=== PATIENT | male | born 1945 | race Caucasian/White ===

== ENCOUNTER 2018-04-10 22:11 | Emergency (ER) | payer OTHER ==
[2018-04-10 22:59] LABS: BASOPHIL % 0.1 % (0-2); PLATELET COUNT 232 x10^3mcL (130-400); RED CELL DISTRIBUTION WIDTH 13.4 % (11.5-14.5)
[2018-04-10 23:15] LABS: CALCIUM 8.7 mg/dL (8.5-10.1); CARBON DIOXIDE 24.8 mmol/L (21-32); CHLORIDE SERUM 107 mmol/L (98-107); GLUCOSE SERUM 94 mg/dL (74-106); POTASSIUM SERUM 4.2 mmol/L (3.5-5.1); SODIUM SERUM 142 mmol/L (136-145)
[2018-04-10 23:18] LABS: ALBUMIN 3.8 g/dL (3.4-5.0); ALKALINE PHOSPHATASE 72 U/L (46-116); ALT/SGPT 18 U/L (16-63); AST/SGOT 13 U/L (15-37); BILIRUBIN TOTAL 0.43 mg/dL (0.20-1.00); TOTAL PROTEIN, SERUM 6.8 g/dL (6.4-8.2)
[2018-04-11 03:12] VITALS: BP 123/76
== END 2018-04-11 03:12 ==
LOC: ED 22:11
PROVIDERS: Emergency Medicine
DX: F03.90 Unspecified dementia, unspecified severity, without behavioral disturbance, psychotic disturbance, mood disturbance, and anxiety (principal)
CPT/HCPCS: J2405; Q0092

== ENCOUNTER 2018-04-17 06:10 | Inpatient (IN) | payer OTHER ==
[~2018-04-17] VITALS: Ht 172.7 cm; Wt 64.0 kg
[2018-04-17] MEDS ORDERED: BUSPIRONE HCL10 MG PO (07:53)
[2018-04-17] MEDS ORDERED: DEPAKOTE ER250 M1 PO (07:54)
[2018-04-17] MEDS ORDERED: OLANZAPINE5 M2 PO (07:55)
[2018-04-17] MEDS ORDERED: ARICEPT5 MG PO (07:55)
[2018-04-17] MEDS ORDERED: PAXIL10 MG PO (07:55)
[2018-04-17] MEDS ORDERED: TYLENOL325 M1 PO (07:56)
[2018-04-17] MEDS ORDERED: SEROQUEL25 MG PO (07:56)
[2018-04-17] MEDS ORDERED: LOPERAMIDE HCL2 M1 PO (07:58)
[2018-04-17] MEDS ORDERED: GERI-LANTA355 ML PO (07:59)
[2018-04-17] MEDS ORDERED: GOOD NEIGH1200 MG/15 PO (08:01)
[2018-04-17 08:25] LABS: BASOPHIL % 0.6 % (0-2); PLATELET COUNT 251 x10^3mcL (130-400); RED CELL DISTRIBUTION WIDTH 13.2 % (11.5-14.5)
[2018-04-17 08:30] LABS: CARBON DIOXIDE 28.5 mmol/L (21-32); CHLORIDE SERUM 106 mmol/L (98-107); CREATININE SERUM 0.8 mg/dL (0.7-1.3); GLUCOSE SERUM 100 mg/dL (74-106); POTASSIUM SERUM 3.7 mmol/L (3.5-5.1); SODIUM SERUM 144 mmol/L (136-145)
[2018-04-17 10:40] LABS: FREE T4 0.96 ng/dL (0.76-1.46); FREE THYROXINE INDEX 2.3 ug/dL (1.4-4.5); T4(THYROXINE) 6.8 ug/dL (4.7-13.3)
[2018-04-17 10:42] LABS: T3 TOTAL 1.17 ng/mL
[2018-04-17 13:43] LABS: CHOLESTEROL/HDL RATIO 4.2
[2018-04-17 14:19] VITALS: BP 122/63
[2018-04-17 19:46] VITALS: BP 122/68
[2018-04-18 05:27] VITALS: BP 134/73
[2018-04-18 09:11] VITALS: BP 108/48
[2018-04-18 12:23] VITALS: BP 107/60
[2018-04-18 20:50] VITALS: BP 129/54
[2018-04-19 05:43] VITALS: BP 130/59
[2018-04-19 08:17] VITALS: BP 151/63
[2018-04-19 12:03] VITALS: BP 143/62
[2018-04-19 18:05] VITALS: BP 128/56
[2018-04-19 21:52] VITALS: BP 110/63
[2018-04-20 05:00] VITALS: BP 129/61
[2018-04-20 06:17] LABS: BASOPHIL % 0.3 % (0-2); PLATELET COUNT 244 x10^3mcL (130-400); RED CELL DISTRIBUTION WIDTH 12.9 % (11.5-14.5)
[2018-04-20 06:39] LABS: CALCIUM 8.8 mg/dL (8.5-10.1); CARBON DIOXIDE 27.7 mmol/L (21-32); CHLORIDE SERUM 107 mmol/L (98-107); CREATININE SERUM 0.9 mg/dL (0.7-1.3); GLUCOSE SERUM 82 mg/dL (74-106); POTASSIUM SERUM 4.6 mmol/L (3.5-5.1); SODIUM SERUM 143 mmol/L (136-145)
[2018-04-20 08:02] VITALS: BP 107/63
[2018-04-20 13:04] VITALS: BP 120/69
[2018-04-20 16:30] VITALS: BP 135/80
[2018-04-20 21:02] VITALS: BP 122/63
[2018-04-21 05:55] VITALS: BP 121/43
[2018-04-21 09:10] VITALS: BP 111/58
[2018-04-21 14:46] VITALS: BP 128/48
[2018-04-21 18:07] VITALS: BP 126/53
[2018-04-21 21:52] VITALS: BP 122/64
[2018-04-22 05:30] VITALS: BP 100/98
[2018-04-22 06:28] LABS: BASOPHIL % 0.4 % (0-2); PLATELET COUNT 218 x10^3mcL (130-400)
[2018-04-22 06:37] LABS: CALCIUM 8.3 mg/dL (8.5-10.1); CARBON DIOXIDE 26.3 mmol/L (21-32); CHLORIDE SERUM 106 mmol/L (98-107); CREATININE SERUM 0.7 mg/dL (0.7-1.3); GLUCOSE SERUM 78 mg/dL (74-106); POTASSIUM SERUM 3.6 mmol/L (3.5-5.1); SODIUM SERUM 142 mmol/L (136-145)
[2018-04-22 09:59] VITALS: BP 166/47; BP 90/61
[2018-04-22 13:44] VITALS: BP 106/88
[2018-04-22 18:12] VITALS: BP 120/61
[2018-04-23 05:25] VITALS: BP 127/62
[2018-04-23 08:46] VITALS: BP 136/65
[2018-04-23 12:27] VITALS: BP 139/50
[2018-04-23 16:41] VITALS: BP 116/81
[2018-04-23 20:06] VITALS: BP 145/80
[2018-04-24 04:58] VITALS: BP 136/64
[2018-04-24 08:33] VITALS: BP 134/71
[2018-04-24 12:25] VITALS: BP 135/66
[2018-04-24 17:24] VITALS: BP 130/68
[2018-04-24 20:06] VITALS: BP 140/61
[2018-04-25 08:26] VITALS: BP 106/81
[2018-04-25 09:53] LABS: AMPHETAMINE QUAL UR NONE DETECTED (See below)
[2018-04-25 10:45] LABS: UA SPECIFIC GRAVITY 1.025 (1.005-1.035); microscopic required? YES; urine erythrocyte 2+ (NEGATIVE)
[2018-04-25 12:20] VITALS: BP 123/64
[2018-04-25 16:48] VITALS: BP 130/64
[2018-04-25 21:00] VITALS: BP 134/63
[2018-04-26 06:08] VITALS: BP 108/48
[2018-04-26 17:10] VITALS: BP 124/79
[2018-04-26 21:02] VITALS: BP 130/70
[2018-04-27 05:21] VITALS: BP 107/65
[2018-04-27 07:05] LABS: BASOPHIL % 0.4 % (0-2); PLATELET COUNT 274 x10^3mcL (130-400); RED CELL DISTRIBUTION WIDTH 12.6 % (11.5-14.5)
[2018-04-27 07:30] LABS: CALCIUM 8.6 mg/dL (8.5-10.1); CARBON DIOXIDE 26.9 mmol/L (21-32); CHLORIDE SERUM 107 mmol/L (98-107); CREATININE SERUM 0.7 mg/dL (0.7-1.3); GLUCOSE SERUM 87 mg/dL (74-106); MAGNESIUM 2.1 mg/dL (1.8-2.4); POTASSIUM SERUM 3.3 mmol/L (3.5-5.1); SODIUM SERUM 139 mmol/L (136-145)
[2018-04-27 08:18] VITALS: BP 133/60
[2018-04-27 14:11] VITALS: BP 147/73
[2018-04-27 17:30] VITALS: BP 137/83
[2018-04-27 20:05] VITALS: BP 141/71
[2018-04-28 04:55] VITALS: BP 132/73
[2018-04-28 08:30] VITALS: BP 125/55
[2018-04-28 12:20] VITALS: BP 111/65
[2018-04-28 17:06] VITALS: BP 126/72
[2018-04-29 00:02] VITALS: BP 155/82
[2018-04-29 05:19] VITALS: BP 130/90
[2018-04-29 06:28] LABS: BASOPHIL % 0.5 % (0-2); PLATELET COUNT 289 x10^3mcL (130-400); RED CELL DISTRIBUTION WIDTH 13.3 % (11.5-14.5)
[2018-04-29 06:35] LABS: CALCIUM 8.8 mg/dL (8.5-10.1); CARBON DIOXIDE 27.7 mmol/L (21-32); CHLORIDE SERUM 109 mmol/L (98-107); CREATININE SERUM 0.7 mg/dL (0.7-1.3); GLUCOSE SERUM 87 mg/dL (74-106); SODIUM SERUM 145 mmol/L (136-145)
[2018-04-29 08:20] VITALS: BP 126/71
[2018-04-29 13:03] VITALS: BP 127/71
[2018-04-29 16:40] VITALS: BP 123/75
[2018-04-29 20:29] VITALS: BP 149/66
[2018-04-30 06:17] VITALS: BP 134/62
[2018-04-30 09:29] VITALS: BP 122/70
[2018-04-30 13:00] VITALS: BP 140/77
[2018-04-30 20:08] VITALS: BP 134/74
[2018-05-01 06:36] VITALS: BP 106/87; BP 106/91
[2018-05-01 07:11] VITALS: BP 126/77
[2018-05-01 11:56] VITALS: BP 130/70
[2018-05-01 18:18] VITALS: BP 145/89
[2018-05-01 20:08] VITALS: BP 166/70
[2018-05-02 06:05] VITALS: BP 143/79
[2018-05-02 09:17] VITALS: BP 129/63
[2018-05-02 12:29] VITALS: BP 132/91
[2018-05-02 17:30] VITALS: BP 122/56
[2018-05-02 21:14] VITALS: BP 137/77
[2018-05-02 21:40] VITALS: BP 137/77
[2018-05-03 05:37] VITALS: BP 140/72
[2018-05-03 06:39] LABS: CALCIUM 8.3 mg/dL (8.5-10.1); CARBON DIOXIDE 24.2 mmol/L (21-32); CHLORIDE SERUM 110 mmol/L (98-107); CREATININE SERUM 1.2 mg/dL (0.7-1.3); GLUCOSE SERUM 98 mg/dL (74-106); POTASSIUM SERUM 3.9 mmol/L (3.5-5.1); SODIUM SERUM 147 mmol/L (136-145)
[2018-05-03 06:47] LABS: PLATELET COUNT 234 x10^3mcL (130-400); RED CELL DISTRIBUTION WIDTH 13.8 % (11.5-14.5)
[2018-05-03 08:30] VITALS: BP 144/66
[2018-05-03 09:29] VITALS: BP 144/66
[2018-05-03 13:27] VITALS: BP 123/65
[2018-05-03 13:49] LABS: BAND NEUTROPHIL 43 % (0-10); MONOCYTE 4 % (0-7); SEGMENTED NEUTROPHILS 46 % (37-75); rbc morphology (normal/abnorm) NORMAL (NORMAL)
[2018-05-03 13:50] LABS: PLATELET MORPHOLOGY LARGE PLATELET SEEN
[2018-05-03 17:10] VITALS: BP 143/57
[2018-05-03 23:22] VITALS: BP 137/70
[2018-05-04 05:35] VITALS: BP 130/72
[2018-05-04 06:27] LABS: PLATELET COUNT 206 x10^3mcL (130-400); RED CELL DISTRIBUTION WIDTH 13.8 % (11.5-14.5)
[2018-05-04 06:59] LABS: CALCIUM 8.3 mg/dL (8.5-10.1); CARBON DIOXIDE 23.8 mmol/L (21-32); CHLORIDE SERUM 108 mmol/L (98-107); CREATININE SERUM 0.7 mg/dL (0.7-1.3); GLUCOSE SERUM 81 mg/dL (74-106); SODIUM SERUM 141 mmol/L (136-145)
[2018-05-04 10:07] VITALS: BP 137/74
[2018-05-04 10:07] LABS: BAND NEUTROPHIL 39 % (0-10); BASOPHIL 0 % (0-2); MONOCYTE 5 % (0-7); SEGMENTED NEUTROPHILS 48 % (37-75); rbc morphology (normal/abnorm) NORMAL (NORMAL)
[2018-05-04 22:06] VITALS: BP 145/78
[2018-05-05 06:09] VITALS: BP 148/75
[2018-05-05 10:00] VITALS: BP 138/77
[2018-05-05 11:12] VITALS: BP 138/77
[2018-05-05 12:39] VITALS: BP 122/68
[2018-05-05 16:01] VITALS: BP 129/77
[2018-05-05 16:44] LABS: PLATELET COUNT 292 x10^3mcL (130-400); RED CELL DISTRIBUTION WIDTH 13.9 % (11.5-14.5)
[2018-05-05 16:47] LABS: CALCIUM 8.5 mg/dL (8.5-10.1); CARBON DIOXIDE 28.2 mmol/L (21-32); CHLORIDE SERUM 107 mmol/L (98-107); CREATININE SERUM 0.8 mg/dL (0.7-1.3); GLUCOSE SERUM 108 mg/dL (74-106); POTASSIUM SERUM 3.3 mmol/L (3.5-5.1); SODIUM SERUM 142 mmol/L (136-145)
[2018-05-05 17:04] LABS: BILIRUBIN DIRECT 0.16 mg/dL (0.0-0.2); BILIRUBIN TOTAL 0.6 mg/dL (0.20-1.00); TOTAL PROTEIN, SERUM 6.3 g/dL (6.4-8.2)
[2018-05-05 17:05] LABS: ALBUMIN 2.3 g/dL (3.4-5.0)
[2018-05-05 17:48] LABS: BAND NEUTROPHIL 5 % (0-10); METAMYELOCTE 3 % (0-2); MONOCYTE 9 % (0-7); MYELOCYTE 1 % (0-2); SEGMENTED NEUTROPHILS 74 % (37-75)
[2018-05-05 17:50] LABS: PLATELET MORPHOLOGY PLATELETS NORMAL; rbc morphology (normal/abnorm) NORMAL (NORMAL)
[2018-05-05 19:42] VITALS: BP 137/68
[2018-05-06 05:28] VITALS: BP 130/61
[2018-05-06 06:53] LABS: PLATELET COUNT 292 x10^3mcL (130-400); RED CELL DISTRIBUTION WIDTH 13.7 % (11.5-14.5)
[2018-05-06 06:59] LABS: CALCIUM 8.5 mg/dL (8.5-10.1); CARBON DIOXIDE 24.5 mmol/L (21-32); CHLORIDE SERUM 105 mmol/L (98-107); CREATININE SERUM 0.8 mg/dL (0.7-1.3); GLUCOSE SERUM 122 mg/dL (74-106); POTASSIUM SERUM 3.2 mmol/L (3.5-5.1); SODIUM SERUM 139 mmol/L (136-145)
[2018-05-06 08:38] VITALS: BP 144/87
[2018-05-06 10:29] VITALS: Ht 172.7 cm; Wt 64.0 kg
[2018-05-06 11:55] LABS: ATYPICAL LYMPH 3 %; BAND NEUTROPHIL 6 % (0-10); BASOPHIL 0 % (0-2); MONOCYTE 3 % (0-7); SEGMENTED NEUTROPHILS 85 % (37-75)
[2018-05-06 11:59] LABS: PLATELET MORPHOLOGY PLATELETS DECREASED; rbc morphology (normal/abnorm) ABNORMAL (NORMAL)
[2018-05-06 12:35] VITALS: BP 146/67
[2018-05-06 17:56] VITALS: BP 119/45
[2018-05-06 21:50] VITALS: BP 143/61
[2018-05-07 05:08] VITALS: BP 136/69
[2018-05-07 06:02] VITALS: BP 136/69
[2018-05-07 07:00] LABS: PLATELET COUNT 312 x10^3mcL (130-400); RED CELL DISTRIBUTION WIDTH 13.9 % (11.5-14.5)
[2018-05-07 07:18] LABS: CALCIUM 8.6 mg/dL (8.5-10.1); CARBON DIOXIDE 28.8 mmol/L (21-32); CHLORIDE SERUM 104 mmol/L (98-107); CREATININE SERUM 0.8 mg/dL (0.7-1.3); GLUCOSE SERUM 101 mg/dL (74-106); POTASSIUM SERUM 3.5 mmol/L (3.5-5.1); SODIUM SERUM 140 mmol/L (136-145)
[2018-05-07 09:22] VITALS: BP 124/63
[2018-05-07 13:49] LABS: BAND NEUTROPHIL 5 % (0-10); METAMYELOCTE 1 % (0-2); MONOCYTE 12 % (0-7); MYELOCYTE 1 % (0-2); SEGMENTED NEUTROPHILS 73 % (37-75)
[2018-05-07 13:50] LABS: PLATELET MORPHOLOGY PLATELETS NORMAL; rbc morphology (normal/abnorm) NORMAL (NORMAL)
[2018-05-07 16:45] VITALS: BP 114/70
[2018-05-08 08:37] VITALS: BP 144/85
[2018-05-08 11:15] VITALS: BP 145/78
[2018-05-08] MEDS ORDERED: ROXD PO (11:57)
[2018-05-08] MEDS ORDERED: ATI2I PO (11:58)
[2018-05-08 12:57] VITALS: BP 144/85
== END 2018-05-08 16:10 | disposition hospice, inpatient (51) | DRG 871 ==
LOC: ED 06:10 → DU 09:26
PROVIDERS: Emergency Medicine; Family Medicine; Internal Medicine; ADMIT General Practice
PROC: 0HQ1XZZ Repair Face Skin, External Approach (ICD-10-PCS; principal; 2018-04-17)
DX: A41.9 Sepsis, unspecified organism (principal); G93.41 Metabolic encephalopathy; J69.0 Pneumonitis due to inhalation of food and vomit; J96.00 Acute respiratory failure, unspecified whether with hypoxia or hypercapnia; N17.0 Acute kidney failure with tubular necrosis; F02.81 Dementia in other diseases classified elsewhere, unspecified severity, with behavioral disturbance; G30.9 Alzheimer's disease, unspecified; S01.81XA Laceration without foreign body of other part of head, initial encounter; G40.909 Epilepsy, unspecified, not intractable, without status epilepticus; E87.6 Hypokalemia; W06.XXXA Fall from bed, initial encounter; Y93.89 Activity, other specified; Y92.89 Other specified places as the place of occurrence of the external cause; Z66 Do not resuscitate; Z51.5 Encounter for palliative care; Z68.20 Body mass index [BMI] 20.0-20.9, adult; Z99.81 Dependence on supplemental oxygen
CPT/HCPCS: 36600; 83880; 84439; 97110-GP; 97112-GP; 97116-GP; 97530-GP; J0515; J1200; J1630; J1885; J1956; J2060; J3230; J3480; J7030; J7620; Q0092